=== PATIENT | female | born 1995 | race Caucasian/White ===

== ENCOUNTER 2016-10-17 14:09 | Emergency (ER) | payer BC ==
--- NOTE | 2016-10-17 14:17 | EDPHY ---
H & P Time Seen by Provider: 10/17/16 14:15 HPI/ROS: CHIEF COMPLAINT: Hallucinogenic mushroom ingestion HISTORY OF PRESENT ILLNESS: 21-year-old female arrives by ambulance with her friend. History is obtained by the friend as the patient herself is unresponsive. The friend reports that they had been ingesting hallucinogenic mushrooms this morning, deny polysubstance ingestion, the patient became progressively more somnolent and was unresponsive in the friends subsequently called 911. Per EMS normal vital signs, normal serum glucose. The there are no reports of trauma. There inside their apartment while doing these. No falls. No alcohol use. PRIMARY CARE PROVIDER: REVIEW OF SYSTEMS: Review of systems is limited as the patient is unresponsive at time of initial interview and examination PAST MEDICAL & SURGICAL HISTORY: unknown SOCIAL HISTORY:witnessed reports of hallucinogenic mushroom ingestion PHYSICAL EXAM (Prior to examination, patient consented to physical exam, hands were washed and my usual and customary physical exam procedures followed) 1) GENERAL: Well-developed, well-nourished, somnolent. 2) HEAD: Normocephalic, atraumatic 3) HEENT: Pupils equal, round, reactive to light bilaterally. Sclera anicteric. 4) NECK: Full range of motion, no meningeal signs. 5) LUNGS: Clear auscultation bilaterally, no wheezes, no rhonchi, no retractions. 6) HEART: Regular rate and rhythm, no murmur, no heave, no gallop. 7) ABDOMEN: No guarding, no rebound, no focal tenderness no signs of trauma, 8) MUSCULOSKELETAL: no signs of trauma No peripheral edema or discoloration. 9) BACK: no visual or palpable abnormality. 10) SKIN: No rash, no petechiae. DIFFERENTIAL DIAGNOSIS: In no particular order including but not limited to hypoglycemia, infectious process, electrolyte abnormality, head injury and intoxicants.r - Medical/Surgical History Hx Asthma: No Hx Chronic Respiratory Disease: No Hx Diabetes: No Hx Cardiac Disease: No Hx Renal Disease: No Hx Cirrhosis: No Hx Alcoholism: No Hx HIV/AIDS: No Hx Splenectomy or Spleen Trauma: No - Social History Smoking Status: Never smoked Constitutional: Initial Vital Signs Heart Rate 110 H 10/17/16 14:24 Respiratory Rate 12 10/17/16 14:24 Blood Pressure 148/98 H 10/17/16 14:24 O2 Sat (%) 96 10/17/16 14:24 O2 Delivery Mode Room Air Allergies/Adverse Reactions: No Known Allergies Allergy (Unverified 07/28/15 01:34) Medical Decision Making ED Course/Re-evaluation: 2:20 p.m.: This patient is unarousable after ingesting suspected hallucinogenic mushrooms. Discussed case with Dr. Phuc Cruz. Will obtain laboratory studies and observe patient. Will also obtain LFTs on this patient. 3:48 p.m.: This patient is awake alert oriented person place time events. Her mother is at bedside who will be taking her home. The patient wants to leave. I discussed with the patient the potential dangers of hallucinogenic mushroom use, possible hepatic toxicity from mushrooms. Recommend that if the patient develops nausea, vomiting, abdominal pain any time the next few days to seek immediate medical attention. Repeat temperature at this time is 37.3 - Data Points Laboratory Results: Laboratory Results 10/17/16 14:21 10/17/16 14:21 10/17/16 10/17/16 10/17/16 15:33 14:21 14:21 WBC RBC Hgb Hct MCV MCH MCHC RDW Plt Count MPV Neut % (Auto) Lymph % (Auto) [place] % (Auto) Eos % (Auto) Baso % (Auto) Nucleat RBC Rel Count Absolute Neuts (auto) Absolute Lymphs (auto) Absolute Monos (auto) Absolute Eos (auto) Absolute Basos (auto) Absolute Nucleated RBC Immature Gran % Immature Gran # PT 13.4 SEC SEC (12.0-15.0) INR 1.03 (0.83-1.16) APTT 28.2 SEC SEC (23.0-38.0) Sodium 141 mEq/L mEq/L (134-144) Potassium 3.8 mEq/L mEq/L (3.5-5.2) Chloride 106 mEq/L mEq/L (97-110) Carbon Dioxide 20 mEq/l L mEq/l (22-31) Anion Gap 15 mEq/L mEq/L (8-16) BUN 9 mg/dL mg/dL (7-23) Creatinine 0.7 mg/dL mg/dL (0.6-1.0) Estimated GFR > 60 Glucose 103 mg/dL H mg/dL (70-100) Calcium 9.6 mg/dL mg/dL (8.5-10.4) Total Bilirubin 0.9 mg/dL mg/dL (0.1-1.4) Conjugated Bilirubin 0.2 mg/dL mg/dL (0.0-0.5) Unconjugated Bilirubin 0.7 mg/dL mg/dL (0.0-1.1) AST 30 IU/L IU/L (14-46) ALT 29 IU/L IU/L (9-52) Alkaline Phosphatase 75 IU/L IU/L (38-126) Creatine Kinase 43 IU/L IU/L (0-156) Total Protein 7.9 g/dL g/dL (6.3-8.2) Albumin 4.4 g/dL g/dL (3.5-5.0) Beta HCG, Qual Pending Beta HCG, Quant < 2.39 mIU/mL mIU/mL (0-4.83) Ethyl Alcohol < 10 mg/dL mg/dL (0-10) 10/17/16 14:21 WBC 9.90 10^3/uL H 10^3/uL (3.80-9.50) RBC 4.59 10^6/uL 10^6/uL (4.18-5.33) Hgb 13.2 g/dL g/dL (12.6-16.3) Hct 38.7 % % (38.0-47.0) MCV 84.3 fL fL (81.5-99.8) MCH 28.8 pg pg (27.9-34.1) MCHC 34.1 g/dL g/dL (32.4-36.7) RDW 12.6 % % (11.5-15.2) Plt Count 226 10^3/uL 10^3/uL (150-400) MPV 10.1 fL fL (8.7-11.7) Neut % (Auto) 80.2 % H % (39.3-74.2) Lymph % (Auto) 10.9 % L % (15.0-45.0) [place] % (Auto) 6.8 % % (4.5-13.0) Eos % (Auto) 0.6 % % (0.6-7.6) Baso % (Auto) 0.8 % % (0.3-1.7) Nucleat RBC Rel Count 0.0 % % (0.0-0.2) Absolute Neuts (auto) 7.94 10^3/uL H 10^3/uL (1.70-6.50) Absolute Lymphs (auto) 1.08 10^3/uL 10^3/uL (1.00-3.00) Absolute Monos (auto) 0.67 10^3/uL 10^3/uL (0.30-0.80) Absolute Eos (auto) 0.06 10^3/uL 10^3/uL (0.03-0.40) Absolute Basos (auto) 0.08 10^3/uL 10^3/uL (0.02-0.10) Absolute Nucleated RBC 0.00 10^3/uL 10^3/uL (0-0.01) Immature Gran % 0.7 % % (0.0-1.1) Immature Gran # 0.07 10^3/uL 10^3/uL (0.00-0.10) PT INR APTT Sodium Potassium Chloride Carbon Dioxide Anion Gap BUN Creatinine Estimated GFR Glucose Calcium Total Bilirubin Conjugated Bilirubin Unconjugated Bilirubin AST ALT Alkaline Phosphatase Creatine Kinase Total Protein Albumin Beta HCG, Qual Beta HCG, Quant Ethyl Alcohol Medications Given: Discontinued Medications Sodium Chloride (Ns) 1,000 mls @ 0 mls/hr IV ONCE ONE PRN Reason: Wide Open Stop: 10/17/16 14:22 Last Admin: 10/17/16 14:35 Dose: 1,000 mls Departure - Departure Disposition: Home, Routine, Self-Care Clinical Impression: Psilocybin mushrooms use disorder, mild Condition: Good Instructions: Hallucinations (ED) Additional Instructions: If you develop nausea vomiting abdominal pain fevers seek medical attention. Please do not use hallucinogenic mushrooms meds in the future, some mushrooms can cause permanent liver damage. Referrals: Lora Bhatti MD [Medical Doctor] - 2-3 days, call for appt.
[2016-10-17] MEDS ORDERED: NS 1,000 ML IV ONE (14:21)
[2016-10-17 14:40] LABS: % IMMATURE GRANULYOCYTES 0.7 % (0.0-1.1); ABSOLUTE IMMATURE GRANULOCYTES 0.07 10^3/uL (0.00-0.10); ADD DIFF? NO; ADD MORPH? NO; ADD SCAN? NO; ATYPICAL LYMPHOCYTE FLAG 10 (0-99); FRAGMENT RBC FLAG 0 (0-99); HEMATOCRIT 38.7 % (38.0-47.0); HEMOGLOBIN 13.2 g/dL (12.6-16.3); LEFT SHIFT FLG 50 (0-99); LIPEMIA HEMOLYSIS FLAG 90 (0-99); MEAN CELL HEMOGLOBIN 28.8 pg (27.9-34.1); MEAN CELL HEMOGLOBIN CONCENTR. 34.1 g/dL (32.4-36.7); MEAN CELL VOLUME 84.3 fL (81.5-99.8); MEAN PLATELET VOLUME 10.1 fL (8.7-11.7); PLATELET CLUMPS FLAG 10 (0-99); PLATELET COUNT 226 10^3/uL (150-400); RED BLOOD CELL COUNT 4.59 10^6/uL (4.18-5.33); RED CELL DISTRIBUTION WIDTH 12.6 % (11.5-15.2)
[2016-10-17 14:51] LABS: INR 1.03 (0.83-1.16); PROTIME(PATIENT) 13.4 SEC (12.0-15.0)
[2016-10-17 14:52] LABS: APTT 28.2 SEC (23.0-38.0)
[2016-10-17 14:56] LABS: ALANINE AMINOTRANSFERASE 29 IU/L (9-52); ALBUMIN 4.4 g/dL (3.5-5.0); ALKALINE PHOSPHATASE 75 IU/L (38-126); ANION GAP 15 mEq/L (8-16); ASPARTATE AMINOTRANSFERASE 30 IU/L (14-46); BILIRUBIN,TOTAL 0.9 mg/dL (0.1-1.4); BILIRUBIN-CONJUGATED 0.2 mg/dL (0.0-0.5); BILIRUBIN-UNCONJUGATED 0.7 mg/dL (0.0-1.1); CALCIUM 9.6 mg/dL (8.5-10.4); CARBON DIOXIDE 20 mEq/l (22-31); CHLORIDE 106 mEq/L (97-110); CREATININE 0.7 mg/dL (0.6-1.0); ETHANOL SERUM < 10 mg/dL (0-10); GLOMERULAR FILTRATION RATE > 60; GLUCOSE 103 mg/dL (70-100); POTASSIUM 3.8 mEq/L (3.5-5.2); SODIUM 141 mEq/L (134-144); TOTAL PROTEIN 7.9 g/dL (6.3-8.2)
[2016-10-17 15:14] VITALS: BP 131/79; PULSE 100; RESP 14; O2SAT 93
[2016-10-17 15:55] VITALS: TEMP 99.1
== END 2016-10-17 15:54 | disposition home or self-care (01) ==
LOC: EDUNIT#
DX: T62.0X1A Toxic effect of ingested mushrooms, accidental (unintentional), initial encounter (principal)
CPT/HCPCS: G0480